=== PATIENT | female | born 1980 | race Caucasian/White ===

== ENCOUNTER 2024-02-22 18:27 | Emergency (ER) | payer BC ==
[~2024-02-22] VITALS: Ht 170.2 cm; Wt 100.0 kg
[2024-02-22 18:29] VITALS: BP 122/98; PULSE 98; RESP 16; TEMP 97.9; O2SAT 98
[2024-02-22 19:55] LABS: BASOPHILS % 0.3 % (0.0-2.0); EOSINOPHILS % 0.1 % (0.0-5.0); HEMATOCRIT. 38.9 % (36.0-48.0); HEMOGLOBIN. 13.7 g/dL (12.0-16.0); LYMPHOCYTES % 8.6 % (20.0-50.0); MEAN CORPUSCULAR HGB CONC 35.2 g/dL (31.0-37.0); MEAN PLATELET VOLUME 7.1 fl (7.4-10.4); MONOCYTES % 8.9 % (2.0-8.0); NEUTROPHILS % 82.1 % (40.0-76.0); PLATELET 522 x1000/uL (130-400); RED BLOOD CELL COUNT 4.27 mill/uL (4.2-5.4); RED CELL DISTRIBUTION WIDTH 12.9 % (11.6-14.6)
[2024-02-22 20:04] LABS: CHLORIDE 104 mEq/L (98-107); POTASSIUM 3.6 mEq/L (3.5-5.1); SODIUM 137 mEq/L (136-145)
[2024-02-22 20:05] LABS: CARBON DIOXIDE 26 mEq/L (21-32)
[2024-02-22 20:06] LABS: CALCIUM 9.7 mg/dL (8.7-10.4); HCG SCREEN NEGATIVE
[2024-02-22 20:10] LABS: GLUCOSE 102 mg/dL (70-105); UREA NITROGEN BLOOD 11 mg/dL (9-23)
[2024-02-22 20:12] LABS: ALANINE AMINOTRANSFERASE 9 IU/L (10-49); ALBUMIN 4.9 g/dL (3.2-4.8); ASPARTATE AMINOTRANSFERASE 14 IU/L (<34); BILIRUBIN DIRECT 0.2 mg/dL (<=3.0)
[2024-02-22 20:13] LABS: BILIRUBIN TOTAL 0.8 mg/dL (0.1-1.0); PROTEIN TOTAL 7.7 g/dL (6.0-8.3)
[2024-02-23] MEDS ORDERED: DOXY100C5 MT (00:42)
[2024-02-23] MEDS: CEFTRIAXONE SODIUM 1G VIAL IM NR (01:41)
== END 2024-02-23 01:47 | disposition home or self-care (01) ==
LOC: ER 18:27
DX: K51.20 Ulcerative (chronic) proctitis without complications (principal)
CPT/HCPCS: 99285; 74176; 80076; 80048; 84703; 83690; 85025; 36415; 96372; J0696